=== PATIENT | male | born 1980 | race African-American/Black ===

== ENCOUNTER 2018-07-14 22:10 | Emergency (ER) | payer MEDICAID ==
[~2018-07-14] VITALS: Ht 177.8 cm; Wt 74.8 kg
[2018-07-14] MEDS ORDERED: NORCO 5-325 TA1 EACH ORAL (22:14)
[2018-07-14 22:15] VITALS: BP 106/71
[2018-07-14] MEDS ORDERED: Methocarbamol 750mg tab ORAL ONE (22:30)
[2018-07-14] MEDS ORDERED: Ketorolac 60mg Inj IM ONE (22:30)
--- NOTE | 2018-07-14 23:50 | Emergency Room Report ---
History of Present Illness General Chief Complaint: Neck Pain Source: Patient, EMS Present Illness HPI Patient was today or yesterday discharged from the [facility] after prolonged stay Patient had C4-C5 fractures and had anterior posterior approach surgery This evening patient reports that he had a fall from his bed he also reports that when he was trying to go to sleep felt a pop in the back of his neck and felt some neuropathy down the left arm Denies any chest pain or short of breath denies any vomiting Denies any mid or low back pain Patient initially had trauma on June 29 Allergies: Coded Allergies: No Known Allergies (Unverified , 07/14/18) Patient History Past Medical History: see triage record Pertinent Family History: none Reviewed Nursing Documentation: PMH: Agreed; PSxH: Agreed Nursing Documentation-PMH Past Medical History: No History, Except For Hx Cerebrovascular Accident: Yes - left hemiplegia Review of Systems All Other Systems: negative except mentioned in HPI Physical Exam Vital Signs Date Time Temp Pulse Resp B/P (MAP) Pulse Ox O2 Delivery O2 Flow Rate FiO2 07/14/18 22:10 98.4 68 18 107/70 97 Sp02 EP Interpretation: reviewed, normal General Appearance: mild distress - And mild pain Head: normocephalic, atraumatic Eyes: bilateral eye PERRL, bilateral eye EOMI ENT: hearing grossly normal, normal pharynx Neck: other - C-collar is in place, patient has Steri-Strips from anterior and posterior approach in place further minute depletion was not performed Respiratory: chest non-tender, lungs clear Cardiovascular #1: normal peripheral pulses, regular rate, rhythm Gastrointestinal: normal bowel sounds, non tender, soft Musculoskeletal: other - Patient has sensory intact over all digits on both hands, able to make furniture manager bilaterally, neuropathy is subjectively reported down the left arm Neurologic: alert, oriented x3, responsive Skin: other - Significant facial abrasions Lymphatic: no adenopathy Medical Decision Making Diagnostic Impression: Primary Impression: Neck pain Additional Impressions: C4 cervical fracture Fx C5 vertebra-closed ER Course Given the patient's history and presentation given the recent disposition from [facility] trauma surgeon was contacted They will accept the patient vascular facility for further testing and imaging is needed In order not to delay transfer and care further evaluation was deferred to [facility] Last Vital Signs Date Time Temp Pulse Resp B/P (MAP) Pulse Ox O2 Delivery O2 Flow Rate FiO2 07/14/18 22:10 98.4 68 18 107/70 97 Status: improved Disposition: XFER SHT-TRM HOSP Condition: Serious Referrals: NOT CHOSEN IPA/,REFERRING (PCP) Lilo Ahmadi DO Jul 14, 2018 23:50
[2018-07-15 00:07] VITALS: BP 108/72
== END 2018-07-15 00:07 | disposition short-term general hospital (02) ==
LOC: EDBD 22:10 → EMR 23:07
DX: S12.301 Unspecified nondisplaced fracture of fourth cervical vertebra (principal); S12.49 Other fracture of fifth cervical vertebra; M54.2 Cervicalgia; I69.854 Hemiplegia and hemiparesis following other cerebrovascular disease affecting left non-dominant side; W06.XXXD Fall from bed, subsequent encounter
CPT/HCPCS: 96372; 99283